=== PATIENT | male | born 2000 | race Asian ===

== ENCOUNTER 2022-03-01 17:12 | Emergency (ER) | payer OTHER ==
--- NOTE | 2022-03-01 18:34 | ED Physician Documentation ---
PD HPI HEADACHE - Stated complaint Stated Complaint: TINGLING IN HEAD/ARM - Chief complaint Chief Complaint: Neuro - History obtained from History obtained from: Patient - Additional information Additional information: Previously healthy 22-year-old gentleman was a bit out of his usual routine. He had gone to a class in the morning and then went home and took a nap. He started napping at around 11 and then woke up at noon because someone called him. He developed a tingling in the back of his head rating down towards his shoulders and then quickly thereafter he had a single jerking motion of the left arm and then subsequently felt like he was paralyzed everywhere but he could still move his fingers. This has resolved. He has a mild posterior headache now. No other symptoms. Review of Systems Ten Systems: 10 systems reviewed and negative Constitutional: denies: Fever, Chills Nose: reports: Reviewed and negative Cardiac: reports: Reviewed and negative Respiratory: reports: Reviewed and negative PD PAST MEDICAL HISTORY - Present Medications Home Medications: Ambulatory Orders Medication Instructions Recorded Confirmed No Known Home Medications 03/01/22 03/01/22 - Allergies Allergies/Adverse Reactions: Allergies Allergy/AdvReac Type Severity Reaction Status Date / Time No Known Drug Allergies Allergy Verified 03/01/22 17:35 PD ED PE NORMAL - Vitals Vital signs reviewed: Yes - General General: Alert and oriented X 3, No acute distress - HEENT HEENT: PERRL, EOMI - Neck Neck: Supple, no meningeal sign, No bony TTP - Cardiac Cardiac: RRR, No murmur - Respiratory Respiratory: No respiratory distress, Clear bilaterally - Abdomen Abdomen: Normal bowel sounds, Soft, Non tender - Back Back: No CVA TTP, No spinal TTP - Derm Derm: Normal color, Warm and dry - Extremities Extremities: No edema, No calf tenderness / cord - Neuro Neuro: Alert and oriented X 3, key maker 2-12 intact, No motor deficit, No sensory deficit, Normal speech, Other (Normal [id number] and [id number]-[id number] testing, normal gait.) Eye Opening: Spontaneous Motor: Obeys Commands Verbal: Oriented GCS Score: 15 Results - Vitals Vitals: Vital Signs - 24 hr 03/01/22 03/01/22 17:30 18:56 Temperature 36.5 C Heart Rate 101 H 89 Respiratory 16 14 Rate Blood Pressure 136/81 H 124/77 O2 Saturation 97 97 Oxygen O2 Source Room air - Labs Labs: Laboratory Tests 03/01/22 03/01/22 18:36 18:36 WBC 5.6 RBC 5.65 Hgb 14.2 Hct 42.4 MCV 75.0 L MCH 25.1 L MCHC 33.5 RDW 13.8 Plt Count 221 MPV 11.7 H Neut # (Auto) 3.4 Lymph # (Auto) 1.6 [place] # (Auto) 0.5 Eos # (Auto) 0.1 Baso # (Auto) 0.1 Absolute Nucleated RBC 0.00 Nucleated RBC % 0.0 Sodium 138 Potassium 3.7 Chloride 105 Carbon Dioxide 25 Anion Gap 8.0 BUN 11 Creatinine 0.8 Estimated GFR (MDRD) 119 Glucose 133 H Calcium 9.3 Magnesium 2.0 Total Bilirubin 1.2 H AST 21 ALT 17 Alkaline Phosphatase 62 Total Protein 7.7 Albumin 4.4 Globulin 3.3 Albumin/Globulin Ratio 1.3 PD MEDICAL DECISION MAKING - ED course ED course: He was sent here because there was a concern for seizure, his description really is not consistent with seizure as he never lost consciousness but did have bilateral symptoms. He also had jerking but only a single jerk of the left upper extremity. Since he was just waking up and he was out of his normal routine and is more likely related to that than anything else. Could be a variant of hypnic jerks or nocturnal paroxysmal dystonia. Departure - Departure Disposition: 01 Home, Self Care Clinical Impression: Hypnic jerks Condition: Good Record reviewed to determine appropriate education?: Yes Instructions: ED Cephalgia Unspecified Comments: There are a few types of things that can happen after waking similar to what you are describing. 1 is called hypnic jerks, another called nocturnal paroxysmal dystonia. The labs today and CAT scan of your head are completely normal so I do not think this was anything serious but she [place]. Return for new or worsening symptoms. Try to keep a regular and normal sleep schedule.
[2022-03-01 18:43] LABS: BASOPHILS # (AUTO) 0.1 10^3/uL (0.0-0.1); BASOPHILS % (AUTO) 1.2 %; EOSINOPHILS # (AUTO) 0.1 10^3/uL (0.0-0.7); EOSINOPHILS % (AUTO) 2.1 %; HCT - HEMATOCRIT 42.4 % (42.0-52.0); HGB - HEMOGLOBIN 14.2 g/dL (14.0-18.0); LYMPHOCYTES # (AUTO) 1.6 10^3/uL (1.5-3.5); LYMPHOCYTES % (AUTO) 27.7 %; MEAN CORPUSCULAR HEMOGLOBIN 25.1 pg (27.0-31.0); MEAN CORPUSCULAR HGB CONC 33.5 g/dL (32.0-36.0); MEAN PLATELET VOLUME 11.7 fL (7.4-11.4); MONOCYTES # (AUTO) 0.5 10^3/uL (0.0-1.0); MONOCYTES % (AUTO) 8.5 %; NEUTROPHILS # (AUTO) 3.4 10^3/uL (1.5-6.6); NEUTROPHILS % (AUTO) 60.1 %; PLT - PLATELET COUNT 221 10^3/uL (130-450); RED BLOOD COUNT 5.65 10^6/uL (4.70-6.10); RED CELL DISTRIBUTION WIDTH 13.8 % (12.0-15.0); WHITE BLOOD COUNT 5.6 x10^3/uL (4.8-10.8)
[2022-03-01 18:56] LABS: ALBUMIN 4.4 g/dL (3.2-5.5); ALBUMIN/GLOBULIN RATIO 1.3 (1.0-2.2); BILIRUBIN,TOTAL 1.2 mg/dL (0.2-1.0); CALCIUM 9.3 mg/dL (8.5-10.3); CREATININE 0.8 mg/dL (0.6-1.2); POTASSIUM 3.7 mmol/L (3.5-5.0); TOTAL PROTEIN 7.7 g/dL (6.7-8.2)
--- NOTE | 2022-03-01 19:17 | CT Report ---
PROCEDURE: HEAD WO INDICATIONS: Headache TECHNIQUE: Noncontrast 4.5 mm thick angled axial sections acquired from the foramen magnum to the vertex. For r adiation dose reduction, the following was used: automated exposure control, adjustment of mA and/or kV according to patient size. COMPARISON: None. FINDINGS: Image quality: Excellent. CSF spaces: Basal cisterns are patent. No extra-axial fluid collections. Ventricles are normal in size and shape. Brain: No midline shift. No intracranial masses or hemorrhage. [place]zate-white matter interface is norm al. Skull and face: Calvarium and visualized facial bones are intact, without suspicious lesions. Sinuses: Visualized sinuses and mastoids are clear. IMPRESSION: No CT evidence of acute intracranial process. Reviewed by: Laila Cai MD on 03/01/2022 7:15 PM PDT Approved by: Laila Cai MD on 03/01/2022 7:15 PM PDT Station ID: [id number]
[2022-03-01 19:27] VITALS: BP 112/74
== END 2022-03-01 19:30 | disposition home or self-care (01) ==
LOC: ED 17:12
DX: R25.8 Other abnormal involuntary movements (principal)
CPT/HCPCS: 36415; 80053; 83735; 85025; 99282; 99284